=== PATIENT | male | born 1960 | race Caucasian/White ===

== ENCOUNTER 2017-12-01 06:21 | Inpatient (IN) ==
[2017-12-01] MEDS ORDERED: Metoprolol Tartrate 25 MG Tablet PO SCH (06:45)
[2017-12-01] MEDS ORDERED: Chlorhexidine Gluconate 2% 1 Pack (2 Cloths) TOPICAL SCH (06:45)
[2017-12-01] MEDS ORDERED: Sodium Chlor 0.9% Inj 500 ML IV.SIG SCH (07:00)
[2017-12-01] MEDS ORDERED: Lidocaine PF 1% Inj 5 ML Syringe INFILTRATN ONE (08:30)
--- NOTE | 2017-12-01 09:48 | P.OP ---
- Preoperative Diagnosis (1) Diverticulitis - Postoperative Diagnosis (1) Diverticulitis Date of procedure: 12/01/17 Procedure: Urologic surgery procedures performed: Cystoscopy and placement of bilateral ureteral catheters Anesthesia: GETA Surgeon: Nilton Romano MD Estimated blood loss (mL): 0 Pathology: none sent Operation and Findings: Urologic indication for procedures. Consulted intraoperatively to pass bilateral ureteral catheters to aid in visualization of this patient's ureters during his colorectal procedure. Urologic procedures in detail: Concurrent with the colorectal surgeon Dr. Bell, I proceeded with cystoscopy and placement of bilateral ureteral catheters as follows: Initially cystoscopic evaluation was performed utilizing the rigid cystoscope with the 30 degree lens and 22 [place] sheath. The urethra was patent without stricture formation and the prostatic urethra was nonobstructing. Further passage of the cystoscope within the urinary bladder revealed both right and left ureteral orifices to be in correct anatomic position. There were no bladder mucosal lesions, calculi or diverticula formation. There was no evidence of fistula formation. I proceeded to pass a sensor 0.035 wire up the patient's left ureter until a small amount of resistance was met. A 6 [place] open-ended ureteral catheter was then advanced over this wire 25 cm in a cephalad direction. With the catheter in place the wire was withdrawn and reintroduced through secondary site via the cystoscope. In similar fashion the contralateral side was accomplished. With both catheters in place, the wire and cystoscope were withdrawn and a 16 [place] 10 cc Callejas catheter was placed. The ureteral catheters were then anchored to the Callejas via a connector and all 3 catheters placed to gravity drainage. This completes the urologic surgery portion of combined procedures on this patient.
[2017-12-01] MEDS ORDERED: Labetalol HCl Inj 100 MG/20 ML Vial IV.CONT ONE (10:00)
[2017-12-01] MEDS ORDERED: Sodium Chlor 0.9% Inj 500 ML IV.SIG ONE (10:00)
[2017-12-01] MEDS ORDERED: Neostigmine Inj 5 MG/5 ML Syringe IV.PUSH ONE (14:15)
[2017-12-01] MEDS ORDERED: Glycopyrrolate Inj 1 MG/5 ML Syringe IV.PUSH ONE (14:15)
[2017-12-01] MEDS ORDERED: Morphine Inj 4 MG/ML Vial IV.PUSH ONE (14:34)
[2017-12-01] MEDS ORDERED: ceFAZolin Inj 3,000 MG in Sodium Chlor 0.9% Inj 100 ML IV.SIG SCH (15:00)
[2017-12-01] MEDS ORDERED: fentaNYL Citrate Inj 100 MCG/2 ML Ampul ONE ×2 (15:04→15:05)
[2017-12-01] MEDS ORDERED: *morphine SULFATE 4 MG/ML PERIprocedure ONLY ONE (15:17)
[2017-12-01] MEDS ORDERED: Morphine Inj 30 MG/30 ML PCA.VIAL PCA ONE (15:46)
--- NOTE | 2017-12-01 15:57 | MP ---
cc: Taylor Bell MD,Antwan Chaney,Tiffany Stafford MD DATE OF OPERATION: 12/01/2017 PREOPERATIVE DIAGNOSIS: Chronic diverticulitis. POSTOPERATIVE DIAGNOSIS: Chronic diverticulitis with adhesions. OPERATIONS: 1. Laparoscopic/robotic extensive lysis of adhesions. 2. Robotic takedown of splenic flexure. 3. Robotic low anterior. SURGEON: Taylor Bell MD CARPENTER'S HELPER: Deshaun. ANESTHESIA: General per ET tube. ESTIMATED BLOOD LOSS: 150 mL OPERATIVE INDICATIONS: The patient is a 57-year-old male who has had repeated severe attacks of diverticulitis. OPERATIVE FINDINGS: The patient had no visible abnormalities noted within the liver. He had a very inflamed phlegmon at the sigmoid colon, which was folded over and wrapped around all the way down to the middle rectum. He also had a small piece of small bowel that was stuck down into the area of concern. OPERATIVE COURSE: The patient was brought to the operating room, and placed in the supine position. After the induction of general anesthesia, the patient was placed in Tai stirrups and all bony prominences were carefully padded. The skin of the anterior abdominal wall, as well as the perineal area, was then prepped and draped in the usual fashion. Dr. Romano then came in and performed cystoscopy with placement of bilateral ureteral catheters, please see his operative notes for details. A site was then chosen for the camera, being located just to the right and above the umbilicus. A 10/12 trocar was placed at this location, under direct vision using the laparoscope. CO2 insufflation was undertaken and a brief abdominal survey was performed. There was nothing noted that would preclude the robotic approach. The #1 port was then placed, which was a 10/12, inside the right anterior superior iliac spine. This was placed under direct vision using the laparoscope. A #5 assist port was placed just under the right costal margin, equidistant from the #1 and the camera port. The patient was hydroplaned with the head down and slightly to the right. The patient was noted to have some adhesions of the small bowel, down into the pelvis, kind of lying next to the colon where it was also adherent into the pelvis. Some of these were carefully dissected free from the pelvis to allow better retraction of the small bowel, but most of it we did leave for after the robot was docked. At that point, I evaluated the descending colon and I felt that we would need to take the splenic flexure because of the extent of the disease in the upper sigmoid. With this, I elected to place my #3 port on the umbilical line, in the left anterior axillary line, and the #2 port in the left midclavicular line, just above the umbilicus. The robot was then docked. The remainder of the small bowel was tediously dissected free from its adherence into the pelvis and the sigmoid colon. There were noted to be a couple of small areas of serosal injury, which were noted for later repair. The peritoneum was then opened from the right to the left and dissection was continued posterior to the vessels, carefully dissecting over to the left side. Unfortunately, due to the adhesions, I was not really able to appreciate the ureter, so I did elect to proceed with a lateral dissection. The lateral peritoneal attachments and adhesions were then dissected free using electrocautery, continuing in this plane until we eventually, after quite some time, did locate the ureter and dissect it away from the specimen. Dissection then continued up the left lateral sidewall up to and not quite around the splenic flexure at this point. The descending colon mesentery was carefully dissected free from Gerota fascia posteriorly. Dissection then continued in the pelvis. The sigmoid colon was retracted again down and to the left, and a window was made around the inferior hemorrhoidal vessels. A white load of the [place] stapler was placed across these vessels, closed, fired, and removed. Dissection then continued posteriorly, down to the level of the mid rectum. Then a quite arduous dissection was completed, freeing the loop of colon that had fallen up and over the colon from the left to the right, which was adherent throughout the pelvis. Eventually, we were able to dissect free this loop of colon and straighten out the bowel. The rectum itself was fairly soft, although there were adhesions along the peritoneal reflection so that did need to be dissected free. Dissection continued posteriorly and on the right and left lateral space until we had freed all of the adhesions down to the level of the distal rectum, and past the peritoneal reflection. A site was then chosen for division of the rectum, on the upper rectum where it was soft and pliable. The mesentery at this level was divided using the Harmonic stapler and a blue load of the [place] End[employer] stapler was placed across the bowel at this level. This was closed, fired and removed. The 29 EEA stapler was then advanced through the anus and up to the rectal stump and a small amount of fibrofatty tissue was cleared from the stump in preparation for later anastomosis. At this point, we evaluated the bowel and I did feel that probably with a little bit more dissection around that beginning part of the splenic flexure, we would be able to bring it down without too much tension. The dissection continued up and around the splenic flexure, freeing the distal transverse colon and proximal descending colon. Eventually I had full mobility from the distal transverse colon down to the level of the rectum. Soft healthy bowel came down nicely into the area of the proposed anastomosis, without tension. The 2 small serosal areas on the small bowel were then repaired in a [id number] fashion using 3-0 Vicryl. The robot was then undocked. A 10 to 12 cm transverse incision was made in the suprapubic area. Using electrocautery, dissection was carried down to the fascia of the anterior abdominal wall, which was split the length of the skin incision. The medial fibers of the rectus abdominis muscle were then divided using electrocautery, and the posterior fascia/peritoneum was divided the length of the skin incision. A wound protector was then placed and the proximal stapled end of the bowel was grasped and pulled up and out through the incision. It was actually quite difficult to get the bowel out as it was so inflamed and thickened. Eventually we had the bowel extracorporeally. A site was chosen for proximal division of the bowel, where the bowel was healthy and soft. The mesentery at this site was serially divided and ligated using 0 Vicryl ties, and the pursestring stapling device was placed across the bowel at this level. The distal bowel was occluded with a Shanti clamp and the bowel was amputated and taken to a back table where it was later opened and diverticulitis was confirmed. The anvil from the 29 EEA stapler was placed into the cut end of the bowel and the previously placed pursestring suture was then secured. This was then reduced back into the peritoneal cavity. After gentle digital dilatation, the 29 EEA stapler was advanced through the anus and up to the rectal stump without difficulty. The spike was advanced just posterior to the staple line and the anvil was to the spike, being careful that the bowel was not twisted. The stapler was closed, held for 30 seconds and removed, thus creating an enteroenterotomy. Both anastomotic rings appeared to be complete and the anastomosis appeared pink and healthy circumferentially. There was no sign of any significant tension on the anastomosis. A small amount of warm normal saline was placed into the pelvis and digital pressure was applied proximally. Air was insufflated into the rectum until gentle tension was noted on the anastomosis, with no sign of any leakage noted. The air was desufflated to the extent possible and the saline was suctioned out of the pelvis. The small bowel was run beginning at the ligament of Treitz and proceeding distally to the ileocecal valve. Other than the 2 areas of repair, there were no other significant abnormalities. The posterior fascia at the suprapubic incision was closed in a running fashion, using #1 PDS, and the anterior fascia closed in running fashion, using #1 PDS. The wound was copiously irrigated with warm normal saline and the skin was closed in a running subcuticular fashion using 3-0 Vicryl. Tegaderm was placed over the incision and CO2 insufflation was resumed. There was not noted at that point to be significant bleeding, but we did dust some surgicel powder into the pelvis to decrease the risk of bleeding. The fascial openings at the 10/12 trocar sites at the the umbilical and right lower quadrant sites were then closed using the crossbow device and 0 Vicryl suture. CO2 insufflation was removed. The fascial sutures were then secured. The wounds were copiously irrigated with normal saline and the skin was closed in an interrupted subcuticular fashion using 3-0 Vicryl. Steri-Strips and sterile dressing were then applied. The right ureteral stent was removed. All sponge, needle and instrument counts were correct and the patient was returned to the postanesthesia care unit in stable condition. MD SERENA Hernandez/naveed/trell , 02:51 PM , 03:09 PM ALLAN
[2017-12-01] MEDS ORDERED: Naloxone Inj 0.4 MG/ML Vial IV.PUSH PRN (16:18)
[2017-12-01] MEDS: Dextrose 5%/NaCl 0.9% Inj 1,000 ML IV.CONT SCH ×2 (16:59→23:15)
[2017-12-01 17:05] LABS: Baso % (Auto) 0.2 % (0.0-2.0); Hematocrit 40.1 % (39.0-51.0); Hemoglobin 13.9 gm/dL (13.0-17.0); Lymph # (Auto) 0.7 th/mm3 (1.0-4.8); Lymph % (Auto) 5.1 % (9.0-44.0); Mean Corpuscular HGB Conc 34.7 % (32.0-36.0); Mean Corpuscular Hemoglobin 33.2 pg (27.0-34.0); Mean Corpuscular Volume 95.8 fL (80.0-100.0); Mean Platelet Volume 7.9 fL (7.0-11.0); Mono # (Auto) 0.7 th/mm3 (0.0-0.9); Mono % (Auto) 5.3 % (0.0-8.0); Neut # (Auto) 12.3 th/mm3 (1.8-7.7); Neut % (Auto) 89.4 % (16.0-70.0); Platelet Count 163 th/mm3 (150-450); Red Blood Count 4.19 mil/mm3 (4.50-5.90); Red Cell Distribution Width 13.5 % (11.6-17.2); White Blood Count 13.7 th/mm3 (4.0-11.0)
[2017-12-01 17:49] LABS: Calcium 7.4 mg/dL (8.5-10.1); Potassium 3.7 meq/L (3.5-5.1)
[2017-12-01 18:12] LABS: Total Protein 6.2 g/dL (6.4-8.2)
[2017-12-01] MEDS ORDERED: HYDROmorphone PF Inj 2 MG/ML Vial IV.PUSH ONE (20:00)
[2017-12-01] MEDS: Famotidine PF Inj 20 MG/2 ML Vial IV.PUSH SCH (22:00)
[2017-12-01] MEDS: Heparin - SQ 10,000 UNITS/ML Vial SQ SCH (22:00)
[2017-12-01] MEDS: PCA - Total MG Morphine Delevered per Shift IV.SIG SCH (23:14)
[2017-12-02] MEDS: Dextrose 5%/NaCl 0.9% Inj 1,000 ML IV.CONT SCH ×5 (01:51→18:36)
[2017-12-02 04:32] LABS: Calcium 7.7 mg/dL (8.5-10.1); Carbon Dioxide 28.1 meq/L (21.0-32.0); Potassium 4.4 meq/L (3.5-5.1)
[2017-12-02 04:33] LABS: Baso % (Auto) 0.1 % (0.0-2.0); Hematocrit 39.9 % (39.0-51.0); Hemoglobin 13.9 gm/dL (13.0-17.0); Lymph # (Auto) 1.8 th/mm3 (1.0-4.8); Lymph % (Auto) 17.4 % (9.0-44.0); Mean Corpuscular HGB Conc 34.7 % (32.0-36.0); Mean Corpuscular Hemoglobin 33.8 pg (27.0-34.0); Mean Corpuscular Volume 97.2 fL (80.0-100.0); Mean Platelet Volume 7.7 fL (7.0-11.0); Mono # (Auto) 0.8 th/mm3 (0.0-0.9); Neut # (Auto) 7.6 th/mm3 (1.8-7.7); Neut % (Auto) 74.5 % (16.0-70.0); Platelet Count 166 th/mm3 (150-450); Red Blood Count 4.11 mil/mm3 (4.50-5.90); Red Cell Distribution Width 13.9 % (11.6-17.2); White Blood Count 10.2 th/mm3 (4.0-11.0)
[2017-12-02] MEDS: PCA - Total MG Morphine Delevered per Shift IV.SIG SCH ×4 (06:28→22:39)
[2017-12-02] MEDS: Morphine Inj 30 MG/30 ML PCA.VIAL PCA PRN ×3 (06:31→20:42)
[2017-12-02] MEDS: Metoprolol Tartrate 50 MG Tablet PO SCH ×2 (09:57→20:17)
[2017-12-02] MEDS: Famotidine PF Inj 20 MG/2 ML Vial IV.PUSH SCH ×2 (09:59→20:17)
[2017-12-02] MEDS: Heparin - SQ 10,000 UNITS/ML Vial SQ SCH ×2 (10:00→20:18)
[2017-12-02] MEDS: ALPRAZolam 0.5 MG Tablet PO SCH ×2 (10:00→20:17)
--- NOTE | 2017-12-02 11:41 | P.PN ---
Subjective Interval history: POD#1 s/p robotic sigmoid resection Comfortable Physical Exam Vital signs: Vital Signs 12/01/17 14:51 12/01/17 15:00 12/01/17 15:15 Temperature 97.5 F L Pulse Rate 84 67 67 Respiratory Rate 14 15 15 Blood Pressure 136/74 128/76 126/77 Pulse Oximetry 96 96 96 12/01/17 15:30 12/01/17 16:00 12/01/17 16:12 Temperature 98.3 F Pulse Rate 68 73 70 Respiratory Rate 15 15 15 Blood Pressure 139/82 132/79 138/81 Pulse Oximetry 99 99 96 12/01/17 19:00 12/01/17 20:00 12/01/17 21:00 Temperature 98.3 F Pulse Rate 80 80 82 Respiratory Rate 18 Blood Pressure 126/76 Pulse Oximetry 97 12/01/17 22:00 12/01/17 23:00 12/02/17 00:00 Temperature 98.6 F Pulse Rate 92 H 81 76 Respiratory Rate 18 Blood Pressure 119/74 Pulse Oximetry 97 12/02/17 00:45 12/02/17 01:00 12/02/17 02:00 Temperature Pulse Rate 78 76 Respiratory Rate Blood Pressure Pulse Oximetry 97 12/02/17 03:00 12/02/17 04:00 12/02/17 05:00 Temperature 98.5 F Pulse Rate 90 90 83 Respiratory Rate 18 Blood Pressure 132/70 Pulse Oximetry 94 L 12/02/17 06:00 Temperature Pulse Rate 84 Respiratory Rate Blood Pressure Pulse Oximetry Intake & Output 12/01/17 12/02/17 12/02/17 18:59 06:59 18:59 Intake Total 2100 / 2100 1780 / 1780 1000 / 1000 Output Total 430 / 430 1100 / 1100 Balance 1670 / 1670 680 / 680 1000 / 1000 Weight 79.5 kg Intake: IV 1700 / 1700 1300 / 1300 1000 / 1000 D5W/Normal Saline Inj 1,000 ML 1000 / 1000 1000 / 1000 @ 125 mls/hr IV.CONT .Q8H DAMIAN Rx#:[id number] LR 1000 mL Inj 1,000 ML @ 30 1400 / 1400 mls/hr IV.SIG .Q24H DAMIAN Rx#: [id number] Ancef Inj 1,000 MG In NS Inj 200 / 200 100 / 100 100 ML @ 100 mls/hr IV.SIG Q8H DAMIAN Rx#:[id number] Flagyl 500 MG Inj 100 ML @ 100 100 / 100 200 / 200 mls/hr IV.SIG SPLICING MACHINE OPERATOR AUTOMATIC DAMIAN Rx#: [id number] Oral 480 / 480 Anesthesia Amount 400 / 400 Output: Urine 55 / 55 Estimated Blood Loss 150 / 150 Urine Amount (Catheter) 225 / 225 1100 / 1100 Indwelling Urethral Catheter 225 / 225 1100 / 1100 - Routine Abdominal Exam Comments: soft, mild distension, tender Dressings c/d/i - Urinary Catheter Management Indwelling Urethral Catheter Cath placed during this visit: yes Reason for continuing: Other continuation reason Insertion date: 12/01/17 Results - Labs CBC & Chem 7: 12/02/17 03:48 12/02/17 03:48 Laboratory Results - last 24 hr 12/01/17 12/01/17 12/02/17 16:45 16:45 03:48 WBC 13.7 H 10.2 RBC 4.19 L 4.11 L Hgb 13.9 13.9 Hct 40.1 39.9 MCV 95.8 97.2 MCH 33.2 33.8 MCHC 34.7 34.7 RDW 13.5 13.9 Plt Count 163 166 MPV 7.9 7.7 Neut % (Auto) 89.4 H 74.5 H Lymph % (Auto) 5.1 L 17.4 [place] % (Auto) 5.3 8.0 Eos % (Auto) 0.0 0.0 Baso % (Auto) 0.2 0.1 Neut # (Auto) 12.3 H 7.6 Lymph # (Auto) 0.7 L 1.8 [place] # (Auto) 0.7 0.8 Eos # (Auto) 0.0 0.0 Baso # (Auto) 0.0 0.0 WBC Differential . . Differential Comment Auto diff final Auto diff final Sodium 133 L Potassium 3.7 Chloride 99 Carbon Dioxide 24.0 Anion Gap 10 BUN 11 Creatinine 1.03 Estimated GFR 75 L Random Glucose 172 H Calcium 7.4 L* Prot Corrected Calcium 7.9 L Total Protein 6.2 L 12/02/17 03:48 WBC RBC Hgb Hct MCV MCH MCHC RDW Plt Count MPV Neut % (Auto) Lymph % (Auto) [place] % (Auto) Eos % (Auto) Baso % (Auto) Neut # (Auto) Lymph # (Auto) [place] # (Auto) Eos # (Auto) Baso # (Auto) WBC Differential Differential Comment Sodium 136 Potassium 4.4 Chloride 101 Carbon Dioxide 28.1 Anion Gap 7 BUN 9 Creatinine 0.99 Estimated GFR 78 L Random Glucose 137 H Calcium 7.7 L Prot Corrected Calcium Total Protein Assessment and Plan - Assessment (1) Diverticulitis Code(s): K57.92 - Diverticulitis of intestine, part unspecified, without perforation or abscess without bleeding Status: Acute - Plan Transfer to [facility] Decrease IVF D/c tele, stent, baxter Advance diet
[2017-12-03] MEDS: Dextrose 5%/NaCl 0.9% Inj 1,000 ML IV.CONT SCH ×2 (05:18→17:13)
[2017-12-03 05:19] LABS: Baso % (Auto) 0.3 % (0.0-2.0); Eos # (Auto) 0.1 th/mm3 (0.0-0.4); Eos % (Auto) 1.5 % (0.0-4.0); Hematocrit 36.9 % (39.0-51.0); Hemoglobin 12.9 gm/dL (13.0-17.0); Lymph # (Auto) 2.3 th/mm3 (1.0-4.8); Lymph % (Auto) 22.4 % (9.0-44.0); Mean Corpuscular HGB Conc 34.9 % (32.0-36.0); Mean Corpuscular Hemoglobin 33.6 pg (27.0-34.0); Mean Corpuscular Volume 96.2 fL (80.0-100.0); Mean Platelet Volume 7.8 fL (7.0-11.0); Mono # (Auto) 0.9 th/mm3 (0.0-0.9); Mono % (Auto) 8.9 % (0.0-8.0); Neut # (Auto) 6.8 th/mm3 (1.8-7.7); Neut % (Auto) 66.9 % (16.0-70.0); Platelet Count 173 th/mm3 (150-450); Red Blood Count 3.83 mil/mm3 (4.50-5.90); White Blood Count 10.1 th/mm3 (4.0-11.0)
[2017-12-03] MEDS: PCA - Total MG Morphine Delevered per Shift IV.SIG SCH ×3 (05:20→21:55)
[2017-12-03 06:27] LABS: Calcium 7.7 mg/dL (8.5-10.1); Carbon Dioxide 28.9 meq/L (21.0-32.0); Potassium 3.6 meq/L (3.5-5.1)
[2017-12-03] MEDS: Metoprolol Tartrate 50 MG Tablet PO SCH ×2 (09:14→20:07)
[2017-12-03] MEDS: ALPRAZolam 0.5 MG Tablet PO SCH ×2 (09:14→20:07)
[2017-12-03] MEDS: Heparin - SQ 10,000 UNITS/ML Vial SQ SCH ×2 (09:15→20:08)
[2017-12-03] MEDS: Famotidine PF Inj 20 MG/2 ML Vial IV.PUSH SCH ×2 (09:15→20:07)
[2017-12-03] MEDS: Morphine Inj 30 MG/30 ML PCA.VIAL PCA PRN ×2 (09:32→20:41)
--- NOTE | 2017-12-03 11:40 | P.PN ---
Subjective Interval history: POD#2 s/p robotic LAR, SBR Physical Exam Vital signs: Vital Signs 12/02/17 12:00 12/02/17 13:00 12/02/17 15:15 Temperature 98.7 F Pulse Rate 84 86 87 Respiratory Rate 16 Blood Pressure 140/63 Pulse Oximetry 92 L 12/02/17 20:00 12/02/17 22:38 12/03/17 01:11 Temperature 100.5 F H 99.6 F Pulse Rate 100 H 90 Respiratory Rate 18 18 18 Blood Pressure 125/71 127/69 Pulse Oximetry 92 L 93 L 12/03/17 03:00 12/03/17 04:00 12/03/17 08:00 Temperature 98.6 F 97.9 F Pulse Rate 86 85 Respiratory Rate 18 18 18 Blood Pressure 135/80 147/78 H Pulse Oximetry 96 97 Intake & Output 12/02/17 12/03/17 12/03/17 18:59 06:59 18:59 Intake Total 2200 / 2200 1100 / 1100 Output Total 425 / 425 775 / 775 Balance 1775 / 1775 325 / 325 Weight 80.7 kg Intake: IV 2200 / 2200 1100 / 1100 D5W/Normal Saline Inj 1,000 ML 2000 / 2000 1000 / 1000 @ 75 mls/hr IV.CONT .[id number] DAMIAN Rx#:[id number] Ancef Inj 1,000 MG In NS Inj 100 / 100 100 ML @ 100 mls/hr IV.SIG Q8H DAMIAN Rx#:[id number] Flagyl 500 MG Inj 100 ML @ 100 100 / 100 mls/hr IV.SIG ORDNANCE ENGINEERING TECHNICIAN DAMIAN Rx#: [id number] Output: Urine 775 / 775 Urine Amount (Catheter) 425 / 425 Indwelling Urethral Catheter 425 / 425 - Detailed Abdominal Exam Comments: soft, moderate distension, tender wounds clean - Urinary Catheter Management Indwelling Urethral Catheter Cath placed during this visit: yes, but has since been removed by the nurse Reason for continuing: Not indwelling catheter Insertion date: 12/01/17 Removal date: 12/02/17 Removal time: 16:10 Results - Labs CBC & Chem 7: 12/03/17 04:55 12/03/17 04:35 Laboratory Results - last 24 hr 12/03/17 12/03/17 04:35 04:55 WBC 10.1 RBC 3.83 L Hgb 12.9 L Hct 36.9 L MCV 96.2 MCH 33.6 MCHC 34.9 RDW 14.0 Plt Count 173 MPV 7.8 Neut % (Auto) 66.9 Lymph % (Auto) 22.4 [place] % (Auto) 8.9 H Eos % (Auto) 1.5 Baso % (Auto) 0.3 Neut # (Auto) 6.8 Lymph # (Auto) 2.3 [place] # (Auto) 0.9 Eos # (Auto) 0.1 Baso # (Auto) 0.0 WBC Differential . Differential Comment Auto diff final Sodium 138 Potassium 3.6 D Chloride 102 Carbon Dioxide 28.9 Anion Gap 7 BUN 8 Creatinine 0.92 Estimated GFR 85 L Random Glucose 103 Calcium 7.7 L Assessment and Plan - Assessment (1) Diverticulitis Code(s): K57.92 - Diverticulitis of intestine, part unspecified, without perforation or abscess without bleeding Status: Acute - Plan some distension go slow with PO
--- NOTE | 2017-12-03 14:44 | XR ---
EXAM DATE: 12/03/2017 2:35 PM EDT AGE/SEX: 57 years / Male INDICATIONS: Distention, post op sigmoid resection. CLINICAL DATA: This is the patient's initial encounter. Patient reports that signs and symptoms have been present for 1 day and indicates a pain score of 8/10. MEDICAL/SURGICAL HISTORY: Diverticulitis. Colon resection. COMPARISON: No prior exams available for comparison. FINDINGS: Single AP view of the abdomen. Multiple loops of air-filled distended small bowel measuring up to 4 cm . Scattered gas in the colon, nondilated. Osseous structures within normal limits. No abnormal abd ominal calcification identified. CONCLUSION: Nonspecific bowel gas pattern with multiple air-filled distended loops of small bowel. Electronically signed by: Td Loaiza MD 12/03/2017 2:43 PM EDT
[2017-12-04] MEDS: Morphine Inj 30 MG/30 ML PCA.VIAL PCA PRN ×2 (05:51→09:14)
[2017-12-04] MEDS: PCA - Total MG Morphine Delevered per Shift IV.SIG SCH ×3 (05:53→21:13)
[2017-12-04] MEDS: Heparin - SQ 10,000 UNITS/ML Vial SQ SCH ×2 (09:21→21:07)
[2017-12-04] MEDS: ALPRAZolam 0.5 MG Tablet PO SCH ×2 (09:21→20:58)
[2017-12-04] MEDS: Metoprolol Tartrate 50 MG Tablet PO SCH ×2 (09:21→20:57)
[2017-12-04] MEDS: Famotidine PF Inj 20 MG/2 ML Vial IV.PUSH SCH ×3 (09:22→20:58)
--- NOTE | 2017-12-04 16:05 | P.PN ---
Subjective Interval history: POD#3 s/p robotic sigmoid resection comfortable, no nausea Physical Exam Vital signs: Vital Signs 12/03/17 20:00 12/03/17 21:08 12/04/17 00:00 Temperature 98.7 F 98.6 F Pulse Rate 85 77 Respiratory Rate 18 18 18 Blood Pressure 112/58 L 113/64 Pulse Oximetry 94 L 95 12/04/17 04:00 12/04/17 06:35 12/04/17 08:00 Temperature 98.1 F Pulse Rate 97 H Respiratory Rate 18 18 17 Blood Pressure 144/70 H Pulse Oximetry 94 L 12/04/17 12:00 Temperature 97.9 F Pulse Rate 84 Respiratory Rate 17 Blood Pressure 129/79 Pulse Oximetry 97 Intake & Output 12/03/17 12/04/17 12/04/17 18:59 06:59 18:59 Output Total 1524 / 1524 125 / 125 1475 / 1475 Balance -1524 / -1524 -125 / -125 -1475 / -1475 Weight 79.9 kg Output: Urine 1524 / 1524 125 / 125 1475 / 1475 Other: # Voids 1 - Routine Abdominal Exam Comments: Abdomen, soft, nontender, moderate distension Wounds clean - Urinary Catheter Management Indwelling Urethral Catheter Cath placed during this visit: yes, but has since been removed by the nurse Reason for continuing: Not indwelling catheter Insertion date: 12/01/17 Removal date: 12/02/17 Removal time: 16:10 Results - Labs CBC & Chem 7: 12/03/17 04:55 12/03/17 04:35 Assessment and Plan - Assessment (1) Diverticulitis Code(s): K57.92 - Diverticulitis of intestine, part unspecified, without perforation or abscess without bleeding Status: Acute - Plan xray consistent with ileus clears
[2017-12-04 17:56] LABS: Baso % (Auto) 0.2 % (0.0-2.0); Eos # (Auto) 0.1 th/mm3 (0.0-0.4); Eos % (Auto) 1.1 % (0.0-4.0); Hematocrit 36.9 % (39.0-51.0); Hemoglobin 12.9 gm/dL (13.0-17.0); Lymph # (Auto) 2.3 th/mm3 (1.0-4.8); Lymph % (Auto) 21.9 % (9.0-44.0); Mean Corpuscular HGB Conc 34.8 % (32.0-36.0); Mean Corpuscular Hemoglobin 33.5 pg (27.0-34.0); Mean Corpuscular Volume 96.2 fL (80.0-100.0); Mean Platelet Volume 7.5 fL (7.0-11.0); Mono # (Auto) 0.8 th/mm3 (0.0-0.9); Mono % (Auto) 7.5 % (0.0-8.0); Neut # (Auto) 7.2 th/mm3 (1.8-7.7); Neut % (Auto) 69.3 % (16.0-70.0); Platelet Count 220 th/mm3 (150-450); Red Blood Count 3.83 mil/mm3 (4.50-5.90); Red Cell Distribution Width 13.9 % (11.6-17.2); White Blood Count 10.4 th/mm3 (4.0-11.0)
[2017-12-04] MEDS: Famotidine 20 MG Tablet PO SCH (20:58)
[2017-12-05] MEDS: PCA - Total MG Morphine Delevered per Shift IV.SIG SCH (05:43)
--- NOTE | 2017-12-05 09:07 | XR ---
EXAM DATE: 12/05/2017 8:37 AM EDT AGE/SEX: 57 years / Male INDICATIONS: Distention, post op colon resection. CLINICAL DATA: This is the patient's subsequent encounter. Patient reports that signs and symptoms h ave been present for 4 - 6 days and indicates a pain score of 0/10. MEDICAL/SURGICAL HISTORY: Diverticulitis. Colon resection. COMPARISON: [facility], ABDOMEN 1V KUB, 12/03/2017. [facility], CT ABDOMEN AND PELVIS W/ CONTRAST, 08/17/2017. . FINDINGS: There remains mild diffuse distention of air-filled loops of small bowel throughout the abdomen. No abnormal calcifications. Osseous structures are intact. CONCLUSION: Persistent mild gaseous distention of bowel loops throughout the abdomen. Air is also seen within non dilated large bowel. Electronically signed by: Jaime Quintero MD 12/05/2017 9:06 AM EDT
[2017-12-05] MEDS: Famotidine PF Inj 20 MG/2 ML Vial IV.PUSH SCH (09:33)
[2017-12-05] MEDS: Heparin - SQ 10,000 UNITS/ML Vial SQ SCH ×2 (09:33→21:09)
[2017-12-05] MEDS: ALPRAZolam 0.5 MG Tablet PO SCH ×2 (09:33→21:09)
[2017-12-05] MEDS: Metoprolol Tartrate 50 MG Tablet PO SCH ×2 (09:33→21:09)
[2017-12-05] MEDS: Famotidine 20 MG Tablet PO SCH ×2 (09:34→21:09)
--- NOTE | 2017-12-05 10:07 | P.PN ---
Subjective Interval history: POD#4 s/p robotic niko/lar passing gas, more comfortable Physical Exam Vital signs: Vital Signs 12/04/17 12:00 12/04/17 16:00 12/04/17 20:33 Temperature 97.9 F 98.4 F 98.8 F Pulse Rate 84 75 79 Respiratory Rate 17 17 18 Blood Pressure 129/79 132/73 134/83 Pulse Oximetry 97 96 96 12/05/17 00:27 12/05/17 04:56 12/05/17 08:00 Temperature 100.2 F H 97.7 F 97.9 F Pulse Rate 81 78 74 Respiratory Rate 17 18 16 Blood Pressure 123/68 126/71 132/63 Pulse Oximetry 95 96 94 L Intake & Output 12/04/17 12/05/17 12/05/17 18:59 06:59 18:59 Intake Total 1000 / 1000 780 / 780 Output Total 2425 / 2425 1700 / 1700 Balance -1425 / -1425 -920 / -920 Weight 79.9 kg 80 kg Intake: Oral 1000 / 1000 780 / 780 Output: Urine 2425 / 2425 1700 / 1700 - Routine Abdominal Exam Comments: Abdomen soft, minimal distension, tender wound clean - Urinary Catheter Management Indwelling Urethral Catheter Cath placed during this visit: yes, but has since been removed by the nurse Reason for continuing: Not indwelling catheter Insertion date: 12/01/17 Removal date: 12/02/17 Removal time: 16:10 Results - Labs CBC & Chem 7: 12/04/17 17:34 12/03/17 04:35 Laboratory Results - last 24 hr 12/04/17 17:34 WBC 10.4 RBC 3.83 L Hgb 12.9 L Hct 36.9 L MCV 96.2 MCH 33.5 MCHC 34.8 RDW 13.9 Plt Count 220 MPV 7.5 Neut % (Auto) 69.3 Lymph % (Auto) 21.9 [place] % (Auto) 7.5 Eos % (Auto) 1.1 Baso % (Auto) 0.2 Neut # (Auto) 7.2 Lymph # (Auto) 2.3 [place] # (Auto) 0.8 Eos # (Auto) 0.1 Baso # (Auto) 0.0 WBC Differential . Differential Comment Auto diff final - Imaging Impressions Abdomen X-Ray 12/05/17 07:00 CONCLUSION: Persistent mild gaseous distention of bowel loops throughout the abdomen. Air is also seen within nondilated large bowel. Assessment and Plan - Assessment (1) Diverticulitis Code(s): K57.92 - Diverticulitis of intestine, part unspecified, without perforation or abscess without bleeding Status: Acute - Plan ileus seems to be clearing, advance diet home soon
[2017-12-06] MEDS: Famotidine 20 MG Tablet PO SCH (08:43)
[2017-12-06] MEDS: Metoprolol Tartrate 50 MG Tablet PO SCH (08:43)
[2017-12-06] MEDS: ALPRAZolam 0.5 MG Tablet PO SCH (08:43)
[2017-12-06] MEDS: Heparin - SQ 10,000 UNITS/ML Vial SQ SCH (08:43)
--- NOTE | 2017-12-06 13:35 | P.PN ---
Subjective Interval history: POD#4 s/p sigmoid colectomy comfortable, wants to go home Physical Exam Vital signs: Vital Signs 12/05/17 16:00 12/05/17 20:00 12/06/17 00:00 Temperature 97.1 F L 97.5 F L 98.2 F Pulse Rate 70 69 68 Respiratory Rate 17 20 20 Blood Pressure 112/73 116/66 104/55 L Pulse Oximetry 99 97 98 12/06/17 01:52 12/06/17 08:00 12/06/17 12:00 Temperature 97.1 F L 97.4 F L Pulse Rate 70 69 Respiratory Rate 18 18 17 Blood Pressure 134/83 120/79 Pulse Oximetry 99 99 Intake & Output 12/05/17 12/06/17 12/06/17 18:59 06:59 18:59 Intake Total 1600 / 1600 800 / 800 Balance 1600 / 1600 800 / 800 Weight 78.2 kg Intake: Oral 1600 / 1600 800 / 800 Other: # Voids 3 3 # Bowel Movements 0 - Routine Abdominal Exam Comments: soft, nondistended, tender wounds clean - Urinary Catheter Management Indwelling Urethral Catheter Cath placed during this visit: yes, but has since been removed by the nurse Reason for continuing: Not indwelling catheter Insertion date: 12/01/17 Removal date: 12/02/17 Removal time: 16:10 Results - Labs CBC & Chem 7: 12/04/17 17:34 12/03/17 04:35 Assessment and Plan - Assessment (1) Diverticulitis Code(s): K57.92 - Diverticulitis of intestine, part unspecified, without perforation or abscess without bleeding Status: Acute - Plan doing well HOme today Followup 3 weeks
--- NOTE | 2018-01-16 21:59 | MD ---
cc: Taylor Bell MD DATE OF DISCHARGE: 12/06/2017 ADMISSION DIAGNOSES: 1. Chronic diverticulitis. 2. Human immunodeficiency virus. 3. Hypertension. 4. Coronary artery disease. DISCHARGE DIAGNOSES: 1. Chronic diverticulitis. 2. Human immunodeficiency virus. 3. Hypertension. 4. Coronary artery disease. PROCEDURES: 1. Cystoscopy with placement of bilateral ureteral catheters. 2. Laparoscopic/robotic extensive lysis of adhesions. 3. Robotic low anterior resection. 4. Robotic takedown of the splenic flexure. HOSPITAL COURSE: The patient is a 57-year-old male who has had repeated severe attacks of diverticulitis. He was admitted to the hospital on 12/01/2017 after an outpatient bowel prep, where he underwent the above-named procedures. Postoperatively, he did well, gradual return of bowel and bladder function. He was discharged home on postoperative day number 4 with instructions to follow up with myself in the office. MD SERENA Hernandez/stefanie , 04:39 PM , 04:46 PM MTDJose
== END 2017-12-06 15:02 | disposition home or self-care (01) ==
LOC: HSDI 06:21 → HCPC 17:00 → N07 12-02 13:18
PROVIDERS: ADMIT Colon & Rectal Surgery; ATTEND Colon & Rectal Surgery